=== PATIENT | male | born 1950 | race Caucasian/White ===

== ENCOUNTER 2016-09-18 19:00 | Inpatient (IN) | payer MEDICARE, OTHER ==
[~2016-09-18] VITALS: Ht 182.9 cm; Wt 114.0 kg
[~2016-09-18 19:00] MED LIST: ADV25050 INHALATION; AMIO200T2 PO; ARIP5TAB7 PO; ATOR20TA38 PO; DILT240C79 PO; FURO40TA4 PO; GLIM2TAB PO; METF500T4 PO; OLME40TA14 PO; POTA20TA8 PO; SITA100T8 PO; TERA5CAP3 PO; WARF4TAB52 PO
[2016-09-18] MEDS ORDERED: IPRATROPIUM (NEB) 0.5 MG/2.5 ML AMP INH STA (19:08)
[2016-09-18] MEDS ORDERED: ALBUTEROL 0.5% (NEB) 2.5 MG/0.5 ML AMP INH STA (19:08)
[2016-09-18] MEDS ORDERED: METHYLPREDNISOLONE 125 MG INJ IV STA (19:08)
[2016-09-18] MEDS ORDERED: MAGNESIUM SULFATE 2 GM/50 ML 50 ML IVPB ONE (19:30)
[2016-09-18 19:47] LABS: BASOPHILS % 0.3 % (0.0-2.0); EOSINOPHILS % 0.5 % (0.0-7.0); HEMATOCRIT 46.5 % (42.0-52.0); HEMOGLOBIN 15.4 g/dl (14.0-18.0); LYMPHOCYTES # 1.8 10^3/ul (0.8-2.9); LYMPHOCYTES % 19.3 % (15.0-51.0); MEAN CORPUSCULAR HEMOGLOBIN 32.4 pg (29.0-33.0); MEAN CORPUSCULAR VOLUME 98.3 fl (82.0-101.0); MEAN PLATELET VOLUME 8.1 fl (7.4-10.4); MONOCYTE # 0.7 10^3/ul (0.3-0.9); NEUTROPHIL # 6.7 10^3/ul (1.6-7.5); NEUTROPHILS % 71.9 % (39.0-77.0); PLATELET COUNT 222 10^3/UL (140-440); RED BLOOD COUNT 4.73 10^6/ul (4.70-6.10); RED CELL DISTRIBUTION WIDTH 15.4 % (11.5-14.5); UNCORRECTED WBC 9.3 10^3/ul (4.8-10.8); WHITE BLOOD COUNT 9.3 10^3/ul (4.8-10.8)
[2016-09-18 19:53] LABS: CONDITION 1; LH ANALYZER COMMENTS 1
[2016-09-18 19:55] LABS: INR 1.16; PROTIME 14.9 Sec (12.2-14.2); PT RATIO 1.2
[2016-09-18 19:56] LABS: PARTIAL THROMBOPLASTIN TIME 32.2 Sec (25.0-35.0)
[2016-09-18 19:57] LABS: ALBUMIN 3.7 g/dl (3.3-4.9)
[2016-09-18 19:58] LABS: POTASSIUM 4.8 mmol/L (3.5-5.1)
[2016-09-18 20:00] LABS: ALBUMIN/GLOBULIN RATIO 1.19; BILIRUBIN,INDIRECT 0.2 mg/dl (0-1.1); BILIRUBIN,TOTAL 0.2 mg/dl (0.2-1.3); CREATININE 0.97 mg/dl (0.61-1.24); TOTAL PROTEIN 6.8 g/dl (6.1-8.1)
--- NOTE | 2016-09-18 20:00 | RADRPT ---
PROCEDURE: XR Chest. CLINICAL INDICATION: Dyspnea. TECHNIQUE: Single frontal view of the chest was obtained COMPARISON: Chest dated 03/03/2016. FINDINGS: Cardiomegaly and atherosclerotic calcifications of the thoracic aorta. Increased patchy air space d isease with new right pleural effusion. Pulmonary vascular congestion. There is no pneumothorax. IMPRESSION: Cardiomegaly and atherosclerotic calcifications of the thoracic aorta, with increased moderate failu re. RPTAT: [facility] Physician Constance Date Time Electronically viewed and signed by Physician Constance on 09/18/2016 19:59 RS/
[2016-09-18 20:11] LABS: AADO2 Arterial 318.2 mmHg (7.0-24.0); Allen Test ACCEPTAB; Arterial Base Excess 5.3 mmol/L (-3.0-3); Arterial COHb 8.3 % (0.0-3.0); Arterial Fraction of Oxyhgb 87.9 % (93.0-99.0); Arterial HCO3 35.7 mmol/L (22.0-26.0); Arterial MetHb 0.1 % (0.0-1.5); Arterial Total Hemglobin 16.1 g/dl (12.0-18.0); MODE SIMPLE MASK
[2016-09-18 20:11] LABS: TROPONIN-I 0.058 ng/ml (0.00-0.12)
--- NOTE | 2016-09-18 20:16 | ERA ---
ER Documentation Chief Complaint Date/Time DATE: 09/18/16 TIME: 20:11 Chief Complaint severe, SOB, hypoxia HPI Patient is a 66-year-old gentleman who comes in complaining of increasing shortness of breath today. He has had a cough with congestion but cannot describe the sputum production. He does not complain of any chest pain, fever, sore throat or otalgia. He has not had any sick contacts. He has not traveled out of the country. He has not had any nausea, vomiting, diarrhea, or abdominal pain. ROS All systems reviewed and are negative except as per history of present illness. Medications Home Meds Active Scripts Furosemide* (Furosemide*) 40 Mg Tablet, 40 MG PO DAILY for 30 Days, TAB Prov:LUIS DANIELTEMO F 03/05/16 Reported Medications Salmeterol Xinaf/Fluticasone* (Advair*) 250-50 Diskus Inhaler, 1 INH INHALATION BID, #1 INHALER 03/03/16 Olmesartan Medoxomil (Benicar) 40 Mg Tablet, 40 MG PO DAILY, #30 TAB 03/03/16 Aripiprazole* (Abilify*) 5 Mg Tab, 5 MG PO DAILY, #30 TAB 03/03/16 Sitagliptin* (Januvia*) 100 Mg Tablet, 100 MG PO DAILY, #30 TAB 03/03/16 Warfarin Sodium* (Warfarin Sodium*) 4 Mg Tablet, 4 MG PO DAILY, TAB 03/03/16 Metformin* (Glucophage*) 500 Mg Tab, 500 MG PO WITH LUNCH DINNER, #60 TAB 03/03/16 Diltiazem Hcl* (Cardizem CD*) 240 Mg Cap.sr.24h, 240 MG PO DAILY, #30 CAP 03/03/16 Potassium Chloride* (Klor-Con*) 10 Meq Tabsr, 10 MEQ PO DAILY, TAB.SA 03/03/16 Glimepiride* (Glimepiride*) 2 Mg Tablet, 2 MG PO WITH BREAKFAST DINNE, TAB 03/03/16 Amiodarone Hcl* (Amiodarone Hcl*) 200 Mg Tablet, 200 MG PO DAILY, #30 TAB 03/03/16 Terazosin Hcl* (Terazosin Hcl*) 5 Mg Capsule, 5 MG PO HS, CAP 03/03/16 Atorvastatin Calcium* (Atorvastatin Calcium*) 20 Mg Tablet, 20 MG PO QHS, #30 TAB 03/03/16 Allergies Allergies: Coded Allergies: acetaminophen (Verified Allergy, Mild, RASH, 03/03/16) PMhx/Soc History of Surgery: No Anesthesia Reaction: No Hx Neurological Disorder: No Hx Respiratory Disorders: No Hx Cardiac Disorders: Yes (AFIB, CHF, HTN) Hx Psychiatric Problems: No Hx Miscellaneous Medical Probl: No Hx Alcohol Use: Yes Hx Substance Use: No Hx Tobacco Use: Yes Smoking Status: Unknown if ever smoked FmHx Family History: coronary disease Physical Exam Vitals Vital Signs Date Time Temp Pulse Resp B/P Pulse Ox O2 Delivery O2 Flow Rate FiO2 09/18/16 19:33 Simple Mask 12 09/18/16 19:33 Simple Mask 12.0 09/18/16 19:09 98.4 86 20 149/87 93 Physical Exam Const: Well-developed well-nourished male with a horribly congested sounding cough Head: Atraumatic normocephalic Eyes: Normal Conjunctiva ENT: Normal External Ears, Nose and Mouth. Neck: Full range of motion..~ No meningismus. Resp: Diffuse inspiratory and expiratory wheezes, decreased breath sounds in the bases bilaterally, not tachypneic, no retractions or nasal flaring Cardio: Regular rate and rhythm, no murmurs Abd: Soft, non tender, non distended. Normal bowel sounds Skin: No petechiae or rashes Back: No midline or flank tenderness Ext: No cyanosis, mild pedal edema Neur: Awake and alert GCS equals 15 Psych: Normal Mood and Affect Result Diagram: 09/18/16193109/18/161931 Results 24 hrs Laboratory Tests Test 09/18/16 19:08 09/18/16 19:32 Arterial Blood HCO3 35.7mmol/L Arterial Blood Base Excess 5.3mmol/L Arterial Blood Oxygen Saturation 96.0mmHG Raul Test ACCEPTAB Arterial Blood Gas Puncture Site Right Radial Arterial Blood Carboxyhemoglobin 8.3% Arterial Blood Date Drawn 09/18/2016 7:57:39 PM Arterial Blood Methemoglobin 0.1% Arterial Blood pCO2 (Temp correct) 80.0mmhg Arterial Blood pH (Temp corrected) 7.267 Arterial Blood pO2 (Temp corrected) 87.6mmHG Blood Gas A-a O2 Differential 318.2mmHg Blood Gas Actual Respiration Rate 28 Blood Gas Critical Value Read Back Vignesh GEORGE MD Blood Gas Modality SIMPLE MASK Blood Gas Notified Time 09/18/2016 8:10:45 PM Blood Gas Notified Whom BL Blood Gas Specimen Source Blood arterial Blood Gas Temperature 37.0C FiO2 69.0% Oxyhemoglobin Percent 87.9% Total Hemoglobin 16.1g/dl Activated Partial Thromboplast Time 32.2Sec Alanine Aminotransferase (ALT/SGPT) 48IU/L Albumin 3.7g/dl Albumin/Globulin Ratio 1.19 Alkaline Phosphatase 91IU/L Anion Gap 16 Aspartate Amino Transf (AST/SGOT) 24IU/L Basophils # 0.010^3/ul Basophils % 0.3% Blood Morphology Comment Blood Urea Nitrogen 23mg/dl Calcium Level 9.0mg/dl Carbon Dioxide Level 34mmol/L Chloride Level 98mmol/L Creatinine 0.97mg/dl Direct Bilirubin 0.00mg/dl Eosinophils # 0.010^3/ul Eosinophils % 0.5% Globulin 3.10g/dl Glucose Level 247mg/dl Hematocrit 46.5% Hemoglobin 15.4g/dl INR International Normalized Ratio 1.16 Indirect Bilirubin 0.2mg/dl Lymphocytes # 1.810^3/ul Lymphocytes % 19.3% Mean Corpuscular Hemoglobin 32.4pg Mean Corpuscular Hemoglobin Concent 33.0g/dl Mean Corpuscular Volume 98.3fl Mean Platelet Volume 8.1fl Monocytes # 0.710^3/ul Monocytes % 8.0% Neutrophils # 6.710^3/ul Neutrophils % 71.9% Nucleated Red Blood Cells # 0.010^3/ul Nucleated Red Blood Cells % 0.0/100WBC Platelet Count 26226^3/UL Potassium Level 4.8mmol/L Prothrombin Time 14.9Sec Prothrombin Time Ratio 1.2 Red Blood Count 4.7310^6/ul Red Cell Distribution Width 15.4% Sodium Level 143mmol/L Total Bilirubin 0.2mg/dl Total Protein 6.8g/dl Troponin I Pending White Blood Count 9.310^3/ul Current Medications Medications (Trade) Dose Ordered Sig/[place] Route PRN Reason Start Time Stop Time Status Last Admin Dose Admin Albuterol (Proventil 0.5% (Neb)) 15 mg ONCE STAT INH 09/18/16 19:08 09/18/16 19:12 DC 09/18/16 20:19 Ipratropium Nebo (Atrovent 0.02% (Neb)) 2 mg ONCE STAT INH 09/18/16 19:08 09/18/16 19:12 DC 09/18/16 20:19 Methylprednisolone Sodium Succinate 125 mg 125 mg ONCE STAT IV 09/18/16 19:08 09/18/16 19:12 DC 09/18/16 20:14 Magnesium Sulfate (Magnesium Sulfate 2 Gm/50 ml) 50 ml @ 25 mls/hr ONCE ONCE IVPB 09/18/16 19:30 09/18/16 21:29 09/18/16 20:14 Furosemide (Lasix) 60 mg ONCE ONCE IV 09/18/16 20:30 09/18/16 20:31 09/18/16 20:14 Procedures/MDM EKG: Rate/Rhythm: Atrial fibrillation at a rate of 90 bpm Q waves noted in leads V1 and V2 with no evidence for acute ischemia QRS, ST, T-waves: [No changes consistent w/ acute ischemia] Impression: [No evidence of ischemia or arrhythmia] 2021: I went in to reexamine the patient and noticed that he was somewhat somnolent. Unfortunately the patient had not received any of the medications nor breathing treatments that I had ordered. I made the nursing staff and the respiratory therapist aware and they are currently getting his medications at this time. Departure Diagnosis: Primary Impression: Shortness of breath Additional Impressions: COPD exacerbation Respiratory failure Qualified Code: J96.22 - Acute on chronic respiratory failure with hypercapnia CHF (congestive heart failure) Qualified Code: I50.9 - Acute on chronic congestive heart failure, unspecified congestive heart failure type Condition: Serious ERICA GEORGE Sep 18, 2016 20:16
[2016-09-18] MEDS ORDERED: ONDANSETRON 4 MG INJ IV PRN (20:30)
[2016-09-18] MEDS ORDERED: FUROSEMIDE 40 MG INJ IV ONE (20:30)
[2016-09-18 22:37] LABS: AADO2 Arterial 269.9 mmHg (7.0-24.0); Arterial Base Excess 3.7 mmol/L (-3.0-3); Arterial COHb 6.1 % (0.0-3.0); Arterial Fraction of Oxyhgb 88.8 % (93.0-99.0); Arterial HCO3 33.5 mmol/L (22.0-26.0); Arterial MetHb 0.2 % (0.0-1.5); Arterial Total Hemglobin 16.9 g/dl (12.0-18.0); Blood Gas IEPAP 16/ 6; Blood Gas PS 10; MODE MASK - BIPAP
[2016-09-18 23:08] VITALS: PULSE 89
[2016-09-19] VITALS (13 sets, daily range): BP systolic 117–142; BP diastolic 66–89; PULSE 81–98; RESP 16–24; Ht 182.9 cm; Wt 114.0 kg
[2016-09-19] MEDS ORDERED: NACL 0.9% 3 ML SYG IV SCH
[2016-09-19] MEDS ORDERED: ONDANSETRON 4 MG INJ IV PRN
[2016-09-19] MEDS ORDERED: ACETAMINOPHEN 325 MG TAB PO PRN
[2016-09-19] MEDS ORDERED: DOCUSATE SODIUM 100 MG CAP PO PRN
[2016-09-19] MEDS ORDERED: HYDROCODONE/APAP (5/325) TAB PO PRN
[2016-09-19] MEDS ORDERED: ZOLPIDEM 5 MG TAB PO PRN
[2016-09-19] MEDS: ALBUTEROL/IPRATROPIUM (NEB) 3 ML AMP HHN SCH ×6 (02:39→20:45)
[2016-09-19] MEDS: FAMOTIDINE 20 MG TAB PO SCH ×3 (03:26→20:36)
[2016-09-19 05:13] LABS: AADO2 Arterial 426.3 mmHg (7.0-24.0); Allen Test ACCEPTAB; Arterial Base Excess 2.2 mmol/L (-3.0-3); Arterial COHb 2.9 % (0.0-3.0); Arterial HCO3 30.8 mmol/L (22.0-26.0); Arterial MetHb 0.2 % (0.0-1.5); Arterial Total Hemglobin 15.9 g/dl (12.0-18.0); MODE HFNC
[2016-09-19] MEDS ORDERED: LORAZEPAM 2 MG INJ IV PRN (06:00)
[2016-09-19 06:16] LABS: EOSINOPHILS % 0.1 % (0.0-7.0); HEMATOCRIT 45.2 % (42.0-52.0); HEMOGLOBIN 14.8 g/dl (14.0-18.0); LYMPHOCYTES # 0.7 10^3/ul (0.8-2.9); MEAN CORPUSCULAR HEMOGLOBIN 32.2 pg (29.0-33.0); MEAN CORPUSCULAR HGB CONC 32.6 g/dl (32.0-37.0); MEAN CORPUSCULAR VOLUME 98.8 fl (82.0-101.0); MEAN PLATELET VOLUME 8.5 fl (7.4-10.4); MONOCYTE # 0.1 10^3/ul (0.3-0.9); MONOCYTES % 1.1 % (0.0-11.0); NEUTROPHIL # 8.9 10^3/ul (1.6-7.5); NEUTROPHILS % 91.8 % (39.0-77.0); PLATELET COUNT 215 10^3/UL (140-440); RED BLOOD COUNT 4.58 10^6/ul (4.70-6.10); RED CELL DISTRIBUTION WIDTH 15.6 % (11.5-14.5); UNCORRECTED WBC 9.7 10^3/ul (4.8-10.8); WHITE BLOOD COUNT 9.7 10^3/ul (4.8-10.8)
[2016-09-19 06:19] LABS: CONDITION 1; LH ANALYZER COMMENTS 1
[2016-09-19 06:25] LABS: POTASSIUM 5.2 mmol/L (3.5-5.1)
[2016-09-19 06:28] LABS: CREATININE 1.05 mg/dl (0.61-1.24)
[2016-09-19 06:29] LABS: CALCIUM 8.9 mg/dl (8.4-10.2)
[2016-09-19] MEDS ORDERED: GLUCOSE GEL 15 GRAM TUBE BUCCAL PRN (07:30)
[2016-09-19] MEDS ORDERED: GLUCAGON 1 MG INJ IM PRN (07:30)
[2016-09-19] MEDS ORDERED: GLUCOSE GEL 15 GRAM TUBE PO PRN ×2 (07:30)
[2016-09-19] MEDS ORDERED: INSULIN GLARGINE [LANtus] 3 ML PEN SC ONE (07:30)
[2016-09-19] MEDS ORDERED: DEXTROSE 50% 50 ML SYRINGE IV PRN ×2 (07:30)
[2016-09-19] MEDS: ARIPIPRAZOLE 5 MG TAB PO SCH (08:31)
[2016-09-19] MEDS: ENOXAPARIN 40 MG/0.4 ML SYG SC SCH (08:31)
[2016-09-19] MEDS: AMIODARONE 200 MG TAB PO SCH (08:32)
[2016-09-19] MEDS: DILTIAZEM (CD) 240 MG CAP PO SCH (08:32)
[2016-09-19] MEDS: SALMETEROL/FLUTICASONE 250/50 INHA INH SCH ×3 (08:32→20:37)
[2016-09-19] MEDS ORDERED: METHYLPREDNISOLONE 125 MG INJ IV SCH (09:00)
[2016-09-19] MEDS: INSULIN ASPART [NOVOLOG] 3 ML PEN SC SCH ×3 (10:04→17:24)
--- NOTE | 2016-09-19 10:38 | HP ---
Date/Time of Note Date/Time of Note DATE: 09/19/16 TIME: 10:29 Assessment/Plan VTE Prophylaxis VTE Prophylaxis Intervention: LMWH Lines/Catheters IV [facility] Saline Lock Urinary Cath still in place: No Assessment/Plan Assessment/Plan [facility] 1. 66-year-old man with a history of congestive heart failure and acute aspiration pneumonia who presented last night with two days of progressive dyspnea, cough, chest congestion, and cyanosis. pCXR suggests mild congestive heart failure. Echo last January showed mild global LV dyskinesis, with EF 45-50% and severe biatrial enlargement. He has chronic atrial fibrillation, but is rate-controlled here. I tried to call Dr. Muro ([phone]), but no voicemail there. * Intravenous Lasix in the ER, and again now * Repeat echo; Dr. Brown consulted to read. * Check TSH, D-dimer, ESR, BNP 2. Diabetes * Stop Januvia and metformin * Accuchecks qAC and qHS * Lantus given this morning (12u), and increased to 30u tonight * Preprandial Novolog 6u * HgbA1c pending 3. Hypertension. * Monitor. 4. Atrial fibrillation * Stroke prophylaxis with warfarin; daily INR 5. Hepatomegaly, with moderate alcohol use. * Abdominal ultrasound; rule out portal vein thrombosis 6. GI prophylaxis * Famotidine PO BID 7. Disposition: Home with family once work-up is complete. Merry White MD PhD [phone] HPI/ROS Admit Date/Time Admit Date/Time Sep 18, 2016 at 20:29 Hx of Present Illness DATE OF ADMISSION: 09/18/2016 CHIEF COMPLAINT: Shortness of breath. HISTORY OF PRESENT ILLNESS: Mr. Barba is a 66-year-old patient of Dr. Lazaro Muro (cardiology) who presented last night to the [facility] emergency room with two days of increased shortness of breath, mild cough and chest congestion. I spoke with his and the patient at the bedside, and with one of his 3 daughters by Skype. His family took a trip together to [place] over the New 's weekend, and his daughter noticed that he was very tired and sleeping a great deal. No ill contacts recalled, and no fever. Last night he was confused, and his said that he was blue appearing with swollen feet. Paramedics determined that he had a low oxygen saturation in the 60s on room air. He was found to be in atrial fibrillation with a rapid response, and was transported by ambulance to [facility]. He has a history of atrial fibrillation, with Coumadin anticoagulation. He had an echocardiogram during a similar hospitalization here 7 months ago, which found a mildly depressed global left ventricular dyskinesis, with ejection fraction of 45%. He had severe biatrial enlargement, but with no significant valvular dysfunction. His said that he had an echocardiogram most recently about one month ago at the office of Dr. Muro. His daughter said that he had a respiratory infection a couple weeks ago, and was treated then with antibiotics. PAST MEDICAL HISTORY: * Atrial fibrillation * Congestive heart failure, with most recent admission last February * Hypertension * Diabetes. MEDICATIONS: 1. Warfarin 4 mg daily. 2. Amiodarone 200 mg daily. 3. Atenolol 25 mg b.i.d. 4. Lipitor 20 mg daily. 5. Diltiazem 240 mg daily. 6. Olmesartan 40 mg daily. 7. Terazosin 5 mg at bedtime. 8. Abilify 5 mg daily. 9. Lasix 40 mL daily. 10. Advair 250/50 one puff b.i.d. 11. Glimepiride. 12. Metformin 500 mg b.i.d. 13. Januvia 100 mg daily. ALLERGIES: TYLENOL. ROS He complained of significant flatus, and said it was worse when he lies flat. He denied any loose stooling, constipation, dysuria or urethritis symptoms, headache, or visual changes. PMH/Family/Social Social History SOCIAL HISTORY: Patient lives at home with his . 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 He smokes 1 pack per day cigarettes. He is a moderate daily drinker. He emig[place] to the [place] from [facility] 15 years ago. He and his have 3 adult daughters , all in good health. FAMILY HISTORY: All of his children are very healthy Smoking Status: Current every day smoker Exam/Review of Systems Vital Signs Vitals Vital Signs Date Time Temp Pulse Resp B/P Pulse Ox O2 Delivery O2 Flow Rate FiO2 09/19/16 08:37 99 26 93 80 09/19/16 08:00 Nasal Cannula 09/19/16 07:05 98.5 132/89 09/19/16 00:53 10.0 Intake and Output 09/18/16 09/18/16 09/19/16 14:59 22:59 06:59 Intake Total 50 ml 300 ml Output Total 275 ml 800 ml Balance -225 ml -500 ml Exam Exam GENERAL: Friendly man in no acute distress, on high-flow oxygen. HEENT: Normocephalic, atraumatic without scleral icterus, perioral cyanosis. Mucous membranes moist. NECK: Soft and supple without masses. Elevated jugular venous distention. CHEST: Shows occasional wheezes, no crackles. HEART: Regular rate and rhythm, S1-S2, no added sounds. ABDOMEN: Soft, nontender, mildly distended and tympanic. He had hepatomegaly, with the liver edge palpable 4 cm below the right costal margin. EXTREMITIES: Without clubbing or cyanosis. No significant leg edema. SKIN: Venous stasis changes bilaterally with hyperpigmentation on the lower calves. no rash. NEUROLOGIC: alert and oriented, cranial nerves intact, motor was 5 over 5 bilaterally. Sensation intact to light touch. Toes downgoing. Chest x-ray shows bilateral pulmonary congestion consistent with congestive heart failure. Labs Result Diagram: 09/19/1612 09/19/16 0512 Medications Medications Current Medications Amiodarone HCl (Cordarone) 200 mg DAILY PO Last administered on 09/19/16 08:32 ; Admin Dose 200 MG; Start 09/19/16 at 09:00 Aripiprazole (Abilify) 5 mg DAILY PO Last administered on 09/19/16 08:31; Admin Dose 5 MG; Start 09/19/16 at 09:00 Atorvastatin Calcium (Lipitor) 20 mg QHS PO ; Start 09/19/16 at 21:00 Diltiazem HCl (Cardizem Cd) 240 mg DAILY PO Last administered on 09/19/16 08:32 ; Admin Dose 240 MG; Start 09/19/16 at 09:00 Salmeterol Xinafoate/ Fluticasone (Advair 250/50 Diskus) 1 inh BID INH Last administered on 09/19/16 08:32; Admin Dose 1 INH; Start 09/19/16 at 00:00 Terazosin HCl (Hytrin) 5 mg HS PO ; Start 09/19/16 at 21:00 Warfarin Sodium (Coumadin) 4 mg DAILY@17 PO ; Start 09/19/16 at 17:00 Ondansetron HCl (Zofran Inj) 4 mg Q6H PRN IV NAUSEA AND/OR VOMITING; Start 09/19 at 00:00 Methylprednisolone Sodium Succinate (Solu-Medrol) 125 mg QAM IV Last administered on 09/19/16 08:31; Admin Dose 125 MG; Start 09/19/16 at 09:00 Acetaminophen (Tylenol Tab) 650 mg Q6H PRN PO PAIN LEVEL 1-3 OR FEVER; Start at 00:00 Acetaminophen/ Hydrocodone Bitart ([place] (5/325)) 1 tab Q6H PRN PO PAIN LEVEL 4 -6; Start 09/19/16 at 00:00 Zolpidem Tartrate (Ambien) 5 mg QHS PRN PO INSOMNIA; Start 09/19/16 at 00:00 Docusate Sodium (Colace) 100 mg Q12H PRN PO CONSTIPATION; Start 09/19/16 at 00: 00 Famotidine (Pepcid) 20 mg Q12 PO Last administered on 09/19/16 08:32; Admin Dose 20 MG; Start 09/19/16 at 00:00 Enoxaparin Sodium (Lovenox) 40 mg DAILY SC Last administered on 09/19/16 08:31 ; Admin Dose 40 MG; Start 09/19/16 at 09:00 Lorazepam (Ativan) 1 mg Q4 PRN IV AGITATION/ANXIETY; Start 09/19/16 at 06:00 Miscellaneous Information 1 ea NOTE XX ; Start 09/19/16 at 07:30 Glucose (Glutose) 15 gm Q15M PRN PO DECREASED GLUCOSE; Start 09/19/16 at 07:30 Glucose (Glutose) 22.5 gm Q15M PRN PO DECREASED GLUCOSE; Start 09/19/16 at 07:30 Dextrose (D50w Syringe) 25 ml Q15M PRN IV DECREASED GLUCOSE; Start 09/19/16 at 07:30 Dextrose (D50w Syringe) 50 ml Q15M PRN IV DECREASED GLUCOSE; Start 09/19/16 at 07:30 Glucagon (Glucagen) 1 mg Q15M PRN IM DECREASED GLUCOSE; Start 09/19/16 at 07:30 Glucose (Glutose) 15 gm Q15M PRN BUCCAL DECREASED GLUCOSE; Start 09/19/16 at 07: 30 EMELY WHITE M.D. Sep 19, 2016 10:37
[2016-09-19] MEDS: NICOTINE (14 MG/24 HR) PATCH TRANSDERM SCH (12:30)
[2016-09-19] MEDS ORDERED: FUROSEMIDE 40 MG INJ IV ONE (13:00)
[2016-09-19 14:42] LABS: D-DIMER 2747.89 ng/ml (<460)
[2016-09-19] MEDS ORDERED: WARFARIN 5 MG TAB PO SCH (17:00)
[2016-09-19] MEDS ORDERED: WARFARIN 2 MG TAB PO SCH (17:00)
[2016-09-19] MEDS ORDERED: ATORVASTATIN 20 MG TAB PO SCH (21:00)
[2016-09-19] MEDS ORDERED: INSULIN GLARGINE [LANtus] 3 ML PEN SC SCH (21:00)
[2016-09-19] MEDS ORDERED: TERAZOSIN 5 MG CAP PO SCH (21:00)
[2016-09-20] VITALS (7 sets, daily range): BP systolic 114–134; BP diastolic 55–71; PULSE 75–85; RESP 18–24
[2016-09-20] MEDS: ALBUTEROL/IPRATROPIUM (NEB) 3 ML AMP HHN SCH ×3 (01:56→10:13)
[2016-09-20 06:35] LABS: INR 1.22; PROTIME 15.5 Sec (12.2-14.2); PT RATIO 1.2
[2016-09-20] MEDS: INSULIN ASPART [NOVOLOG] 3 ML PEN SC SCH ×2 (07:30→11:30)
[2016-09-20] MEDS: FAMOTIDINE 20 MG TAB PO SCH (08:58)
[2016-09-20] MEDS: ARIPIPRAZOLE 5 MG TAB PO SCH (08:58)
[2016-09-20] MEDS: NICOTINE (14 MG/24 HR) PATCH TRANSDERM SCH (08:58)
[2016-09-20] MEDS: DILTIAZEM (CD) 240 MG CAP PO SCH (08:59)
[2016-09-20] MEDS: AMIODARONE 200 MG TAB PO SCH (08:59)
[2016-09-20] MEDS ORDERED: METHYLPREDNISOLONE 125 MG INJ IV SCH (09:00)
[2016-09-20] MEDS: ENOXAPARIN 40 MG/0.4 ML SYG SC SCH (09:08)
[2016-09-20] MEDS: SALMETEROL/FLUTICASONE 250/50 INHA INH SCH (09:36)
--- NOTE | 2016-09-20 13:52 | PN ---
Date/Time of Note Date/Time of Note DATE: 09/20/16 TIME: 13:39 Assessment/Plan VTE Prophylaxis VTE Prophylaxis Intervention: other (coumadin ) Lines/Catheters IV [facility] Saline Lock Urinary Cath still in place: No Assessment/Plan Assessment/Plan 66-year-old man: 1. Respiratory distress: patient with congestive heart failure and possibly COPD exacerbation. Echo last January showed mild global LV dyskinesis, with EF 45-50% and severe biatrial enlargement. On Lasix IV and this Am i was unable to assess him appropriately as the patient was non cooperative and just wanted to leave AMA, patient has no labs today and unclear if the repeat echo was done. Patient has been on Hi Flow here and unclear if getting actual O2 as the canula was not even put in adequately when I attempted to examine him .. 2. Diabetes Mellitus: again no labs and patient left AMA to go follow up with PCP A1C 8.1 3. Hypertension: continue current meds. 4. Atrial fibrillation: continue rate control and Coumadin, last INR was 1.22 5. Hepatomegaly, with moderate alcohol use, was planning for abdominal ultrasound but patient left AMA Prophylaxis: on Coumadin but INR to be therapeutic and Pepcid for GI ppx Disposition: Patient leaving AMA despite risk of respiratory failure and ... Subjective 24 Hr Interval Summary Free Text/Dictation Patient wants to leave AMA and difficult to reason with. at bedside who is translating also insistent to take him home even if it means they are leaving AMA. They requested to sign the AMA form. Exam/Review of Systems Vital Signs Vitals Vital Signs Date Time Temp Pulse Resp B/P Pulse Ox O2 Delivery O2 Flow Rate FiO2 09/20/16 12:27 98.6 42 24 134/71 90 09/20/16 10:18 90 09/20/16 08:00 Nasal Cannula 09/19/16 00:53 10.0 Intake and Output 09/19/16 09/19/16 09/20/16 15:00 23:00 07:00 Intake Total 1200 ml 400 ml Output Total 600 ml Balance -600 ml 1200 ml 400 ml Exam Very limited exam as patient agitated and non cooperative just wants to leave AMA Constitutional: alert, obese, oriented Results Result Diagram: 09/19/16 0512 09/19/16 0512 Results 24 hrs Laboratory Tests Test 09/19/16 13:50 09/19/16 17:20 09/19/16 19:58 09/20/16 05:59 B-Type Natriuretic Peptide 4430 H D-Dimer 2747.89 H D-Dimer Comment Erythrocyte Sedimentation Rate 30 H Hemoglobin A1c 8.1 H Thyroid Stimulating Hormone (TSH) 0.270 L Troponin I 0.041 Bedside Glucose 422 *H 347 H INR International Normalized Ratio 1.22 Prothrombin Time 15.5 H Prothrombin Time Ratio 1.2 Test 09/20/16 07:56 09/20/16 11:54 Bedside Glucose 218 258 H TEMO CARY Sep 20, 2016 13:49
--- NOTE | 2016-09-20 16:00 | RADRPT ---
Echocardiogram Report Patient Name: NICOLLE MARCH Gender: Male Date: 1950 Study Date: 20-Sep-2016 Industrial Hygiene Technician: Bar Wilks [facility] Location: [address] Ref. Physician: EMELY BROTHERS Quality: Adequate Procedures: Transthoracic echocardiogram with complete 2D, M-Mode, and doppler examination. Indications: Atrial Fibrillation, Hypoxia. 2D/M Mode Doppler Measurement Value Normal Ranges Measurement Value Normal Ranges LVIDd 2D 6.3 3.5 - 5.6 cm AV Peak David 1.1 m/sec LVIDs 2D 4.2 2.1 - 4.1 cm AV Peak PG 4.5 mmHg LVPWd 2D 1.1 0.6 - 1.1 cm LVOT Peak David 0.7 m/sec IVSd 2D 1.2 0.6 - 1.1 cm LVOT Peak PG 2.1 mmHg AoR Diam 2D 2.9 2.0 - 3.7 cm TR Peak David 2.9 m/sec EDV 2D 203.8 cm3 TR Peak PG 34.4 mmHg ESV 2D 76.1 cm3 RVSP 49.0 mmHg LA Dimen 2D 5.0 2.3 - 4.0 cm Findings Left Ventricle: Mild concentric left ventricular hypertrophy. Mild enlargement of left ventricle cavity. Moderate left ventricular systolic dysfunction. Ejection fraction is visually estimated at 40 %. Abnormal Diastolic Function. Right Ventricle: Mild enlargement of right ventricle. Mild right ventricular hypokinesis. Left Atrium: There is moderate enlargement of left atrium. Right Atrium: There is mild enlargement of right atrium. Mitral Valve: Mitral valve leaflets appear mildly thickened. Mild mitral annular calcification. Mild mitral valve regurgitation. Aortic Valve: No significant aortic stenosis or insufficiency. Aortic cusps appear mildly calcified. Tricuspid Valve: Normal appearance of the tricuspid valve. Estimated peak PA systolic pressure 49 mmHg. There is mild tricuspid regurgitation. Pericardium: Normal pericardium with no significant pericardial effusion. Aorta: Normal aortic root. IVC: Dilated IVC without respiratory collapse consistent with elevated right atrial pressure. Conclusions Mild concentric left ventricular hypertrophy. Mild enlargement of left ventricle cavity. Moderate left ventricular systolic dysfunction. Ejection fraction is visually estimated at 40 %. Abnormal Diastolic Function. Mild enlargement of right ventricle. Mild right ventricular hypokinesis. There is moderate enlargement of left atrium. There is mild enlargement of right atrium. Mild mitral valve regurgitation. No significant aortic stenosis or insufficiency. Estimated peak PA systolic pressure 49 mmHg. There is mild tricuspid regurgitation. Normal pericardium with no significant pericardial effusion. Electronically Signed By: Avinash Palacio 20-Sep-2016 15:59:22 -0800 Patient Name: NICOLLE MARCH Study Date: 20-Sep-[id number]
--- NOTE | 2016-09-21 02:22 | DS ---
DATE OF ADMISSION: 09/18/2016 DATE OF DISCHARGE: 09/20/2016 DISPOSITION: Discharge the patient left against medical advice. CHIEF COMPLAINT ON ADMISSION: Shortness of breath. BRIEF HISTORY OF PRESENT ILLNESS: This is a 66-year-old male who presented to [facility] with increased shortness of breath, mild cough, and chest congestion. The patient has multi ple underlying comorbidities including atrial fibrillation on anticoagulation currently, congestive heart failure, hypertension, diabetes mellitus. He was found to be in severe respiratory distress r equiring admission to telemetry and he was maintained on high flow. HOSPITAL COURSE: The patient had been maintained on pulmonary treatment and high flow for oxygenati on. This morning, he has been very anxious, restless, and he told the nurse that he wanted to leave . Also, his is insisting to take him out of the hospital. I went in and saw the patient who i s not very familiar, but I found him sitting up on the bed. He is on high flow with the nasal cannu la on the side; therefore, not really getting the oxygen. He is complaining to the fact that he has been unable to walk to the bathroom, even would not let him ambulate. He is complaining about the telemetry leads being in place and wants to leave the hospital. I have explained to him that he pham s have respiratory distress requiring high flow to be placed; therefore, he cannot be discharged fro m the hospital. He insisted on leaving against medical advice. I have talked to him and to his wif e who was able to translate from [place] to [place] the fact that he if he is going to leave agains t medical advice, we will not give him any medication upon leaving. We cannot also arrange oxygen f or him, as we do not even know how much he really requires and how high flow cannot be arranged for home. The patient acknowledged understanding and wants to leave no matter what. The is mainta ining that she called the primary care physician's office and they will go to the primary care physi wilian to get what they need. I have repeated to her at least 3 times that she will not get any presc riptions from us. She kept asking for it and I explained to her that we cannot give her any prescri ptions if the patient is leaving against medical advice. They still insisted on leaving. After lexi barton, we were again called on the floor as she was asking for some prescriptions, after being explai jama multiple times that he will not be getting any prescriptions from us, as the patient is leaving against medical advice. They proceeded on still leaving the hospital at that time. DISPOSITION: The patient left against medical advice. FINAL DIAGNOSES: 1. Respiratory distress, possibly related to congestive heart failure exacerbation versus chronic o bstructive pulmonary disease exacerbation. 2. Coronary artery disease. 3. Reported congestive heart failure, ejection fraction unclear. 4. Diabetes mellitus. 5. Chronic atrial fibrillation. 6. Tobacco user, likely chronic obstructive pulmonary disease. 7. Hepatomegaly. DISCHARGE MEDICATIONS: The patient is to resume his home medication. He did not get any prescripti ons from us. FOLLOWUP: The kept stating that he made an appointment to go see her primary care physician to day. Dictated By: TEMO CARY MD NK/NTS Conf#: [id number] DID#: [id number] CC: EMELY BROTHERS MD;*EndCC*
--- NOTE | 2016-09-24 12:14 | PQ ---
Date/Time of Note Date/Time of Note DATE: 09/24/16 TIME: 11:59 Physician Query Documentation Clarification Dear , A review of the medical record found a need for documentation clarification. DC Summ -Respiratory distress2, possibly related to congestive heart failure exacerbation 1. versus chronic obstructive pulmonary disease exacerbation ECHO Conclusions Mild concentric left ventricular hypertrophy. Mild enlargement of left ventricle cavity. Moderate left ventricular systolic dysfunction. Ejection fraction is visually estimated at 40 %. Abnormal Diastolic Function. BNP = 4430 Lasix 40 mg IV 09/19 ABG - 09/18 -7.267 / pCO2 = 80.0 - placed on simple mask -> BIPAP--> Rebreather pt on Telemetry 1. ) Please clarify the suspected acuity of CHF. To facilitate accurate and complete coding, please mikhail ( x ) the suspected diagnosis that apply: ( ) Acute Systolic (Reduced EF) Heart Failure ( ICD10 I50.21 ) ( ) Acute Diastolic (Preserved EF) Heart Failure ( ICD10 I50.31 ) ( )Acute Combined Systolic & Diastolic Heart Failure ( ICD10 I50.41 ) ( ) Chronic Systolic (Reduced EF) Heart Failure ( ICD10 I50.22 ) ( ) Chronic Diastolic (Preserved EF) Heart Failure ( ICD10 I50.32 ) ( X ) Chronic Combined Systolic & Diastolic Heart Failure ( ICD10 I50.42 ) ( ) Acute on Chronic Systolic (Reduced EF) Heart Failure ( ICD10 I50.23 ) ( )Acute on Chronic Diastolic (Preserved EF) Heart Failure ( ICD10 I50.33 ) ( ) Acute on Chronic Combined Systolic & Diastolic Heart Failure ( ICD10 I50.43 ) ( ) Clinically undetermined 2. ) Based on your medical judgment, can you further clarify which, if any, of the following conditions are present? ( ) Acute respiratory distress with respiratory failure ( ) Acute respiratory distress without respiratory failure ( ) Chronic respiratory distress ( ) Clinically undetermined Thank you for your time. Clay Chowdary RN, BSN, CCS, CCDS Clinical Membership Manager Health Information Management, CDI and Coding Services Room # [id number] - [address]~ [id number] CLAY CHOWDARY Sep 24, 2016 12:12 TEMO CARY Oct 01, 2016 10:31
== END 2016-09-20 12:50 | disposition left against medical advice (07) | DRG 292 ==
LOC: E/R 19:00 → TEL 20:29 → UNDOADMIN 23:26 → TEL 23:26
PROVIDERS: ADMIT Internal Medicine; ATTEND Internal Medicine
DX: I11.0 Hypertensive heart disease with heart failure (principal); J44.1 Chronic obstructive pulmonary disease with (acute) exacerbation; I48.2 Chronic atrial fibrillation; Z79.01 Long term (current) use of anticoagulants; E11.9 Type 2 diabetes mellitus without complications; I50.42 Chronic combined systolic (congestive) and diastolic (congestive) heart failure; Z72.0 Tobacco use; Z79.84 Long term (current) use of oral hypoglycemic drugs
CPT/HCPCS: 36415; 36600; 71010; 80048; 80053; 82803; 82962; 83036; 83880; 84443; 84484; 85025; 85378; 85610; 85651; 85730; 87040; 93005; 93306; 94640; 94660; 94664; 96365; 96366; 96375; J1650; J1815; J1940; J2930; J3475